=== PATIENT | male | born 1980 | race American Indian/Alaskan Native ===

== ENCOUNTER 2022-09-01 09:36 | Inpatient (IN) | payer OTHER ==
[~2022-09-01] VITALS: Ht 167.6 cm; Wt 96.2 kg
[2022-09-01] MEDS ORDERED: MIDAZOLAM HCL 2 MG/2 ML VIAL IM ONE ×2 (10:15→11:15)
[2022-09-01 11:32] LABS: HEMATOCRIT. 43.8 % (42.0-52.0); HEMOGLOBIN. 15.2 g/dL (14.0-18.0); MEAN CORPUSCULAR HEMOGLOBIN 32.4 pg (28.0-32.0); MEAN CORPUSCULAR VOLUME 93.7 fL (80.0-94.0); MEAN PLATELET VOLUME 7.9 fl (7.4-10.4); PLATELET 256 x1000/uL (130-400); RED BLOOD CELL COUNT 4.68 mill/uL (4.7-6.1); RED CELL DISTRIBUTION WIDTH 13.4 % (11.6-14.6)
[2022-09-01 11:39] LABS: CHLORIDE 102 mEq/L (98-107)
[2022-09-01] MEDS ORDERED: MIDAZOLAM HCL 2 MG/2 ML VIAL IM NR (12:00)
[2022-09-01 12:07] LABS: ETHANOL BLOOD < 10 mg/dL
[2022-09-01 12:55] LABS: PLATELET ESTIMATE NORMAL
[2022-09-01] MEDS ORDERED: DIPHENHYDRAMINE 50MG/ML VIAL IM NR (13:00)
[2022-09-01] MEDS ORDERED: LORAZEPAM 2MG/ML CPJ IM NR (13:00)
[2022-09-01] MEDS ORDERED: HALOPERIDOL LACTATE 5MG/ML VIAL IM NR (13:00)
[2022-09-01 13:47] LABS: CLARITY URINE CLOUDY (CLEAR); COLOR URINE DARK YELLOW (YELLOW); KETONES URINE 1+ (NEGATIVE); LEUKOCYTE ESTERASE URINE NEGATIVE (NEGATIVE); NITRITE URINE NEGATIVE (NEGATIVE); OCCULT BLOOD URINE 2+ (NEGATIVE); PROTEIN URINE 1+ (NEGATIVE); SPECIFIC GRAVITY URINE 1.028 (1.005-1.030)
[2022-09-01 14:24] LABS: *AMPHETAMINES SCREEN URINE NEGATIVE (NEGATIVE); *BARBITURATES SCREEN URINE NEGATIVE (NEGATIVE); *BENZODIAZEPINES SCREEN URINE PRESUMTIVE POSITIVE (NEGATIVE); *COCAINE SCREEN URINE PRESUMTIVE POSITIVE (NEGATIVE); CANNABINOID URINE SCREEN NEGATIVE (NEGATIVE); METHADONE URINE SCREEN NEGATIVE (NEGATIVE); OPIATES URINE SCREEN NEGATIVE (NEGATIVE); PHENCYCLIDINE URINE SCREEN NEGATIVE (NEGATIVE)
[2022-09-01 16:05] LABS: CREATINE KINASE 7398 IU/L (39-308)
[2022-09-01 18:24] VITALS: BP 127/89
[2022-09-01] MEDS ORDERED: OLAN10TA32 PO (18:44)
[2022-09-01] MEDS ORDERED: DIVA-18 PO (18:44)
[2022-09-01] MEDS ORDERED: ONDANSETRON HCL 4MG/2ML INJ IV PRN (20:15)
[2022-09-01] MEDS ORDERED: LORAZEPAM 2MG/ML CPJ IV PRN (20:15)
[2022-09-01] MEDS ORDERED: DIVALPROEX SODIUM 500MG ER TABLET PO SCH (20:30)
[2022-09-01] MEDS ORDERED: OLANZAPINE 5MG TABLET ODT PO SCH (20:30)
[2022-09-01] MEDS ORDERED: FAMOTIDINE 20MG TABLET PO SCH (21:00)
[2022-09-01] MEDS ORDERED: DIVALPROEX SODIUM 500MG DR TABLET PO SCH (21:00)
[2022-09-01] MEDS ORDERED: OLANZAPINE 5MG TABLET PO SCH (21:00)
== END 2022-09-01 20:50 | disposition left against medical advice (07) | DRG 885 ==
LOC: ER 09:41 → 6WST 14:55 → EDBEDREQTM 14:57 → EDBEDREQSVC 14:57 → EDBEDREQ 14:57 → 6WST 18:10
PROVIDERS: ADMIT Internal Medicine; ATTEND Internal Medicine
DX: F31.9 Bipolar disorder, unspecified (principal); F10.129 Alcohol abuse with intoxication, unspecified; Z78.1 Physical restraint status
CPT/HCPCS: 36415; 80053; 80305; 80307; 80320; 80329; 81003; 82550; 82962; 85025; 93005; 99291; J1200; J1630; J2060; J2250; G0480